=== PATIENT | male | born 1960 | race Hispanic/Latino ===

== ENCOUNTER → 2024-11-09 | Day surgery (SDC) | payer OTHER ==
[~2024-11-09] MED LIST: AMLODIPINE BESY10 MG PO; GLYCOPYRROLATE INJ 0.2 MG/ML VIAL ONE; LIDOCAINE HCL 2% LOCAL INJ 5 ML SDV VIAL INJ ONE; PROPOFOL IV EMULSION 10 MG/ML 20 ML VIAL ONE
[2024-11-09] MEDS: LACTATED RINGER'S 1,000 ML ONE (10:14)
[2024-11-09 11:56] VITALS: TEMP 97.4
[2024-11-09 12:25] VITALS: BP 114/77; PULSE 86; RESP 18; O2SAT 99
== END | disposition home or self-care (01) ==
LOC: OR 09:11
PROVIDERS: ATTEND Internal Medicine Gastroenterology
DX: Z12.11 Encounter for screening for malignant neoplasm of colon (principal); D12.5 Benign neoplasm of sigmoid colon; K57.30 Diverticulosis of large intestine without perforation or abscess without bleeding; K64.8 Other hemorrhoids; Z71.3 Dietary counseling and surveillance; C61 Malignant neoplasm of prostate; I10 Essential (primary) hypertension; Z71.89 Other specified counseling; E66.01 Morbid (severe) obesity due to excess calories; R06.02 Shortness of breath; Z01.810 Encounter for preprocedural cardiovascular examination; Z79.60 Long term (current) use of unspecified immunomodulators and immunosuppressants; Z79.899 Other long term (current) drug therapy; Z68.31 Body mass index [BMI] 31.0-31.9, adult; Z92.3 Personal history of irradiation
CPT/HCPCS: 45385; 93005; J2003; J2704; J7121; 45378